=== PATIENT | male | born 1955 | race American Indian/Alaskan Native ===

== ENCOUNTER 2022-07-12 21:30 | Emergency (ER) | payer MEDICAID ==
[~2022-07-12] VITALS: Ht 177.8 cm; Wt 86.2 kg
[2022-07-12] MEDS ORDERED: 1/2 NS 250ml250 ML (22:50)
== END 2022-07-12 23:20 | disposition home or self-care (01) ==
LOC: ER 21:30
DX: S61.011A Laceration without foreign body of right thumb without damage to nail, initial encounter (principal); W29.0XXA Contact with powered kitchen appliance, initial encounter
CPT/HCPCS: 90714